=== PATIENT | female | born 1950 | race Caucasian/White ===

== ENCOUNTER 2017-10-27 06:39 | Emergency (ER) | payer OTHER, MEDICAID ==
[~2017-10-27] VITALS: Ht 154.9 cm; Wt 97.5 kg
[2017-10-27 06:40] VITALS: BP_SYST 165
[2017-10-27] MEDS ORDERED: ACETAMINOPHEN 500 MG TABLET PO ONE (06:45)
[2017-10-27] MEDS ORDERED: NACL 0.9% 1,000 ML IV ONE (06:45)
[2017-10-27] MEDS ORDERED: AMLO5TAB4 PO (06:56)
[2017-10-27] MEDS ORDERED: TRIA1CAP53 PO (06:56)
[2017-10-27] MEDS ORDERED: LISI40TA4 PO (06:56)
[2017-10-27 07:00] LABS: BASOPHILS % (AUTO) 0.7 % (0.0-2.0); EOSINOPHILS # (AUTO) 0.1 K/uL (0.0-0.4); EOSINOPHILS % (AUTO) 2.4 % (0.0-4.0); HEMATOCRIT 46.4 % (36-48); HEMOGLOBIN 15.3 g/dL (12.0-16.0); LYMPHOCYTES # (AUTO) 1.8 K/uL (1.0-5.5); LYMPHOCYTES % (AUTO) 28.7 % (20.5-51.5); MEAN CORPUSCULAR HEMOGLOBIN 29 pg (27-31); MEAN CORPUSCULAR HGB CONC 33 % (32-36); MEAN CORPUSCULAR VOLUME 87 fL (79.0-98.0); MONOCYTES # (AUTO) 0.3 K/uL (0.0-1.0); MONOCYTES % (AUTO) 5.1 % (1.7-9.3); NEUTROPHILS % (AUTO) 63.1 % (40.0-70.0); PLATELET COUNT (AUTO) 184 K/uL (130-430); RED BLOOD CELL COUNT(AUTO) 5.32 MIL/uL (4.2-6.2); RED CELL DISTRIBUTION WIDTH 12.8 % (9.0-15.0); WHITE BLOOD COUNT (AUTO) 6.2 K/uL (4.8-10.8)
[2017-10-27] MEDS ORDERED: ONDANSETRON HCL 4 MG/2 ML VIAL IVP ONE (07:00)
[2017-10-27 07:25] LABS: ANION GAP 10 (5-15); CALCIUM 9.3 mg/dL (8.4-11.0); CHLORIDE 104 mmol/L (98-107); CREATININE 0.77 mg/dL (0.55-1.30); GLUCOSE 160 mg/dL (70-99); POTASSIUM 3.4 mmol/L (3.5-5.1); SODIUM SERUM 141 mmol/L (136-145); UREA NITROGEN, BLOOD 16 mg/dL (8-21)
[2017-10-27 07:31] LABS: ALANINE AMINOTRANSFERASE 40 U/L (12-78); ASPARTATE AMINOTRANSFERASE 26 U/L (10-37); LIPASE 168 U/L (73-393); TOTAL BILIRUBIN 1.4 mg/dL (0.0-1.0)
[2017-10-27 08:01] LABS: GFR AFRICAN AMERICAN 96 mL/min (>90)
[2017-10-27 08:27] LABS: BILIRUBIN,URINE NEGATIVE (NEGATIVE); BLOOD, URINE NEGATIVE (NEGATIVE); CLARITY/URINE CLEAR (CLEAR); COLOR,URINE YELLOW (YELLOW); GLUCOSE,URINE NEGATIVE (NEGATIVE); KETONES,URINE NEGATIVE (NEGATIVE); LEUKOCYTE ESTERASE ,URINE TRACE (NEGATIVE); NITRITE, URINE NEGATIVE (NEGATIVE); PROTEIN URINE NEGATIVE (NEGATIVE); UROBILINOGEN,URINE 0.2 (0.2-1.0)
[2017-10-27 08:53] LABS: BACTERIA,URINE FEW /HPF (None Seen); RBC,URINE 0-3 /HPF (0-3); WBC,URINE 0-3 /HPF (0-3)
[2017-10-27 08:54] LABS: MUCUS,URINE None Seen /LPF (None Seen)
[2017-10-27] MEDS ORDERED: PROCHLORPERAZINE EDISYLATE 10 MG/2 ML VIAL IVP ONE (09:15)
[2017-10-27] MEDS ORDERED: NS 500 ML IV ONE (09:15)
[2017-10-27] MEDS ORDERED: DIPHENHYDRAMINE INJ 50 MG/ML VIAL IVP ONE (09:15)
[2017-10-27 10:45] VITALS: BP_SYST 124
== END 2017-10-27 10:45 | disposition home or self-care (01) ==
LOC: SED 06:39
DX: G44.209 Tension-type headache, unspecified, not intractable (principal); R42 Dizziness and giddiness; R06.02 Shortness of breath
CPT/HCPCS: 36415; 70450; 71045; 80053; 81000; 83690; 83880; 84484; 85025; 86710; 93005; 96361; 96374; 96375; 99285; J0780; J1200; J2405; J7030

== ENCOUNTER 2018-05-08 00:35 | Inpatient (IN) | payer OTHER, MEDICAID ==
[~2018-05-08] VITALS: Ht 154.9 cm; Wt 94.3 kg
[~2018-05-08 00:35] MED LIST: AMLO5TAB4 PO; LISI40TA4 PO; TRIA1CAP53 PO
[2018-05-08 00:55] VITALS: BP_SYST 150
--- NOTE | 2018-05-08 01:00 | NUR ---
Patient to ER bed 1 to gown for evaluation. Side rails up. Report given to KYE CHERY.
--- NOTE | 2018-05-08 01:10 | NUR ---
Patient AOx4, ambulatory, presents to ER with complaint of sharp left-sided CP x1 day and BLAS. Patient states hx of HTN. Per patient, blood pressure has been rising for the past few days. Patient speaking in full sentences. No other symptoms or complaints. at bedside.
--- NOTE | 2018-05-08 01:40 | NUR ---
SEAMUS Miller at bedside for medical evaluation.
--- NOTE | 2018-05-08 01:43 | NUR ---
# 20 gauge angiocath placed to RAC. Use of asceptic technique. Opsite placed over site. Blood return noted. Blood for lab drawn from site. Flushed with 10 cc of normal saline. No evidence of infiltration noted. Patient tolerated well.
[2018-05-08] MEDS ORDERED: ASPIRIN 81 MG TAB.CHEW PO ONE (01:45)
[2018-05-08] MEDS ORDERED: NITROGLYCERIN 0.4 MG TAB.SUBL SL ONE (01:45)
[2018-05-08 02:07] LABS: BASOPHILS # (AUTO) 0.1 K/uL (0.0-0.2); BASOPHILS % (AUTO) 1.3 % (0.0-2.0); EOSINOPHILS # (AUTO) 0.1 K/uL (0.0-0.4); EOSINOPHILS % (AUTO) 0.7 % (0.0-4.0); HEMATOCRIT 45.6 % (36-48); HEMOGLOBIN 15.6 g/dL (12.0-16.0); LYMPHOCYTES # (AUTO) 1.9 K/uL (1.0-5.5); LYMPHOCYTES % (AUTO) 24.1 % (20.5-51.5); MEAN CORPUSCULAR HEMOGLOBIN 30 pg (27-31); MEAN CORPUSCULAR HGB CONC 34 % (32-36); MEAN CORPUSCULAR VOLUME 88 fL (79.0-98.0); MONOCYTES # (AUTO) 0.5 K/uL (0.0-1.0); MONOCYTES % (AUTO) 6.8 % (1.7-9.3); NEUTROPHILS # (AUTO) 5.5 K/uL (1.8-7.7); NEUTROPHILS % (AUTO) 67.1 % (40.0-70.0); PLATELET COUNT (AUTO) 272 K/uL (130-430); RED BLOOD CELL COUNT(AUTO) 5.18 MIL/uL (4.2-6.2); RED CELL DISTRIBUTION WIDTH 12.5 % (9.0-15.0); WHITE BLOOD COUNT (AUTO) 8.1 K/uL (4.8-10.8)
--- NOTE | 2018-05-08 02:16 | NUR ---
Patient states CP has decreased significantly, no further doses of Nitro to be administered at this time.
[2018-05-08 02:26] LABS: PROTHROMBIN TIME 9.9 SECS (9.5-12.5)
--- NOTE | 2018-05-08 02:30 | NUR ---
No adverse reactions noted after medication administration. Will continue to monitor.
[2018-05-08 02:33] LABS: ALBUMIN 4.3 g/dL (3.4-4.8); CALCIUM 9.6 mg/dL (8.4-11.0); CREATININE 1.04 mg/dL (0.55-1.30); POTASSIUM 3.2 mmol/L (3.5-5.1); TOTAL BILIRUBIN 1.7 mg/dL (0.0-1.0)
[2018-05-08] MEDS ORDERED: POTASSIUM CHLORIDE 10 MEQ TAB.PRT.SR PO ONE (02:45)
--- NOTE | 2018-05-08 03:00 | NUR ---
End of life care decisions discussed with patient by Dr. Miller. Opportunity for questions and concerns addressed. Patient's code status is FULL CODE, paperwork completed and placed in chart.
[2018-05-08] MEDS ORDERED: NOR10 PO (03:07)
[2018-05-08] MEDS ORDERED: HYDR-4037 PO (03:07)
--- NOTE | 2018-05-08 03:07 | NUR ---
Medication reconciliation completed with information provided by patient. Any prior medication reconciliation on file was reviewed and corrected.
--- NOTE | 2018-05-08 03:23 | NUR ---
Patient will be admitted to care of Dr. Ventura. Admitted to Telemetry unit. Will go to room 135. Belongings list completed. Summary report printed. Report will be given at bedside.
--- NOTE | 2018-05-08 03:38 | NUR ---
ADMIT NOTE Received pt from ER to the floor with a diagnosis of CHEST PAIN, HYPERTENSION. Admission process initiated. patient oriented to pain management, safety and call light-teach back done.
[2018-05-08 03:44] VITALS: BP_SYST 141
--- NOTE | 2018-05-08 05:00 | NUR ---
ROUNDS PATIENT AWAKE IN BED. PARTNER AT BEDSIDE. DENIES ANY PAIN THIS TIME. NO DISTRESS NOTED. CALL LIGHT WITHIN REACH.
--- NOTE | 2018-05-08 05:49 | NUR ---
CONSULTATION PAGED/CALLED Reason for Consultation: CHEST PAIN Person Who was Notified: BONNIE Consulting Physician: RAMONA Feed In Worker Specialty: CARDIO Ordering Physician: IRMA
[2018-05-08] MEDS ORDERED: ACETAMINOPHEN 325 MG TABLET PO PRN (06:15)
[2018-05-08] MEDS ORDERED: NITROGLYCERIN 0.4 MG TAB.SUBL SL PRN (06:15)
[2018-05-08] MEDS ORDERED: INSULIN ASPART 100 UNITS/ML, 10 ML VIAL (NovoLOG) SUBCUT PRN (06:30)
--- NOTE | 2018-05-08 06:31 | NUR ---
CLOSING NOTES PATIENT RESTING IN BED. NO DISTRESS NOTED. NEEDS ATTENDED. SINUS RHYTHM ON TELE MONITOR. CALL LIGHT WITHIN REACH.
--- NOTE | 2018-05-08 07:30 | NUR ---
OPENING NOTE Received report at bedside. Patient is in bed resting and does not report chest pain. Breathing is non labored. Reviewed plan of care with patient, bed in low position and call light within reach.
[2018-05-08 08:30] VITALS: BP_SYST 125
--- NOTE | 2018-05-08 08:30 | NUR ---
ROUNDS Initial assessment and vital signs were done. Presently no report of chest pain. Family (Tad, significant other) is at bedside. She ambulated to the restroom to void. Administered morning medications and educated on side effects. All needs met. Will continue to monitor.
[2018-05-08] MEDS: FAMOTIDINE 20 MG TABLET PO SCH (08:47)
[2018-05-08] MEDS: hydrALAZINE HCL 10 MG TABLET PO SCH ×2 (08:48→21:29)
[2018-05-08] MEDS: LISINOPRIL 20 MG TABLET PO SCH (08:49)
[2018-05-08] MEDS: ASPIRIN 81 MG TABLET(ECOTRIN) PO SCH (08:49)
[2018-05-08 09:27] LABS: CHOLESTEROL 187 mg/dL (<200); HDL CHOLESTEROL 43 mg/dL (>55); LDL CHOLESTEROL 127 mg/dL (<100); TRIGLYCERIDES 156 mg/dL (30-150)
[2018-05-08 09:59] LABS: CALCIUM 9.4 mg/dL (8.4-11.0); CREATININE 0.95 mg/dL (0.55-1.30); POTASSIUM 3.4 mmol/L (3.5-5.1)
--- NOTE | 2018-05-08 10:00 | NUR ---
ROUNDS Patient is resting in bed supine for ECHO study. Respirations are non-labored and she does not report pain. Will continue to monitor.
--- NOTE | 2018-05-08 11:45 | NUR ---
ROUNDS Patient is resting, no s/sx of distress noted. Patient denies chest pain. Pt ambulated to restroom with steady gait. Glucose fingerstick was checked and resulted as 105. Will continue to monitor.
[2018-05-08 12:02] VITALS: BP_SYST 120
[2018-05-08] MEDS ORDERED: POTASSIUM CHLORIDE 20 MEQ TAB.PRT.SR PO ONE (12:15)
--- NOTE | 2018-05-08 13:20 | NUR ---
ROUNDS Patient is resting in bed. She is awake and talking with family, who is at bedside. Breathing is non-labored and she reports no chest pain. Needs met.
--- NOTE | 2018-05-08 15:07 | NUR ---
HEADACHE/PALPITATIONS At 1445 pt stated she felt palpitations, a sudden headache and her left side of her face go numb. No c/o dizziness at this time. Pt able to smile with no droopiness, able to follow commands, able to move all extremities normally. Vital signs : BP 154/81, HR 80, RR 18, SaO2 99% on room air. Pt showing NSR on the telemonitor, no changes in heart rate noted by school lunch monitor. Pt given Tylenol as ordered and cold packs placed to pt's forehead, light turned down low and curtain pulled to promote rest. Dr. Ventura called and informed that pt stated that she had the same facial numbness and pain this past October when she was diagnosed with vertigo, order for PRN BP given.
--- NOTE | 2018-05-08 15:38 | NUR ---
ROUNDS Patient reports headache has decreased to a level of 2/10, overall she is better. She said the medication and ice-packs helped. I re-checked her blood pressure and it is down from previous reading, it is 135/79, HR 79 and 97% on room air. Will continue to monitor.
[2018-05-08 16:02] VITALS: BP_SYST 145
--- NOTE | 2018-05-08 16:20 | NUR ---
SCD's Patient was up and returning to bed from the restroom. Patient was provided with SCD's as ordered. She was instructed that although she is independent, she needs to call for help prior to going to the restroom.
[2018-05-08 18:43] LABS: THYROID STIMULATING HORMONE 1.01 uIu/mL (0.36-3.74)
--- NOTE | 2018-05-08 18:50 | NUR ---
CLOSING NOTE Patient is resting in bed. She is awake and watching tv. No s/sx of distress. She denies pain to chest or headache at this time. She agreed to the flu shot and it was administered to right arm.
[2018-05-08] MEDS ORDERED: cloNIDine HCL 0.1 MG TABLET PO PRN (19:45)
--- NOTE | 2018-05-08 20:00 | NUR ---
INITIAL NOTES: PATIENT IN BED AWAKE ,ALERT ,ORIENTED X4. FAMILIES AT BEDSIDE. VITAL SIGNS TAKEN ,ALL WITHIN NORMAL LIMITS. DENIES SOB NOR CHEST PAIN. ROOM AIR. CALL LIGHT WITHIN REACH. BED IN LOW POSITION FOR SAFETY. BED ALARM ON. HAS SCD TO BOTH LEGS. INSTRUCTED HOW TO TAKE IF WHEN GOES TO BATHROOM. SINUS RHYTHM ON TELEMONITOR.
[2018-05-08 20:20] VITALS: BP_SYST 132
--- NOTE | 2018-05-08 21:20 | NUR ---
MEDS ADMIN: DUE MEDS GIVEN AFTER EXPLAINING INDICATIONS OF IT. BLOOD SUGAR WITHIN NORMAL LIMITS.
--- NOTE | 2018-05-08 22:10 | NUR ---
AMBULATED TO BATHROOM ASSISTED BY SISTER TO VOID. NO DIZZINESS.
--- NOTE | 2018-05-09 00:05 | NUR ---
PATIENT AND SISTER STILL AWAKE CONVERSING. VITAL SIGNS STABLE.
[2018-05-09 00:35] VITALS: BP_SYST 106
--- NOTE | 2018-05-09 02:15 | NUR ---
LAB DRAW: AM LABS WITH TROPONIN DRAWN BY LAB MILIEU TECHNICIAN.
[2018-05-09 02:47] LABS: ANION GAP 4 (5-15); CALCIUM 8.8 mg/dL (8.4-11.0); CHLORIDE 105 mmol/L (98-107); CREATININE 1.01 mg/dL (0.55-1.30); GLUCOSE 108 mg/dL (70-99); POTASSIUM 3.8 mmol/L (3.5-5.1); SODIUM SERUM 138 mmol/L (136-145); UREA NITROGEN, BLOOD 18 mg/dL (8-21)
[2018-05-09 02:57] LABS: GFR AFRICAN AMERICAN 71 mL/min (>90)
--- NOTE | 2018-05-09 03:00 | NUR ---
DOOZING OFF TO SLEEP.
--- NOTE | 2018-05-09 06:50 | NUR ---
CLOSING: BLOOD SUGAR 119MG/DL. NO S/S OF HYPOGLYCEMIA. NO EPISODE OF VERTIGO. SLEPT AT SHORT INTERVAL. NO ACUTE CARDIOPULMONARY DISTRESS . ALL NEEDS WERE ATTENDED. CALL LIGHT WITHIN REACH AT ALL TIMES.
[2018-05-09 08:11] VITALS: BP_SYST 137
--- NOTE | 2018-05-09 08:12 | NUR ---
INITIAL NOTE PT SITTING UP IN BED, EATING BREAKFAST. AT BEDSIDE. AAOX4, NO S/S OF ACUTE DISTRESS, NO C/O CHEST PAIN, BP WITHIN NORMAL RANGE, VSS. IV SITE TO [facility] 20GG SALINE LOCKED. PLAN OF CARE DISCUSSED, PT VERBALIZED UNDERSTANDING, SAFETY PRECAUTIONS IN PLACE, CALL LIGHT WITHIN REACH, WILL FOLLOW UP
[2018-05-09] MEDS: ASPIRIN 81 MG TABLET(ECOTRIN) PO SCH (08:50)
[2018-05-09] MEDS: hydrALAZINE HCL 10 MG TABLET PO SCH (08:50)
[2018-05-09] MEDS: LISINOPRIL 20 MG TABLET PO SCH (08:50)
[2018-05-09] MEDS: FAMOTIDINE 20 MG TABLET PO SCH (08:50)
--- NOTE | 2018-05-09 10:00 | NUR ---
DR GREENE MAKING ROUNDS, PER MD PT IS CLEARED FROM CARDIAC STAND POINT FOR DISCHARGE, AWAITING DR SOLIS TO MAKE ROUNDS FOR NEW ORDERS.
--- NOTE | 2018-05-09 10:42 | NUR ---
DC Planning: Updated pt's status and faxed FS / ED notes to Aleks at [facility] fax# [phone]. Informed dr. Serrano, the plan for Stress Test is not approved. Aleks will schedule the procedure for out patient this pm or tomorrow. Dr Serrano to revaluate for the disposition. Addendum: 05/09/18 at 1053 by Zechariah Casas RN Error Wrong patient entry
--- NOTE | 2018-05-09 11:30 | NUR ---
BLOOD SUGAR 88, NO COVERAGE NEEDED PER SLIDING SCALE. CALL LIGHT WITHIN REACH, AT BEDSIDE, WILL CONTINUE TO MONITOR
--- NOTE | 2018-05-09 11:45 | NUR ---
DR SOLIS MAKING ROUNDS, PT ASSESSED, NEW ORDER RECEIVED FOR DISCHARGE, PT TO FOLLOW UP WITH MD OUTPATIENT, PT WOULD LIKE TO LEAVE AFTER LUNCH, WILL START DISCHARGE PAPERWORK
[2018-05-09 12:04] VITALS: BP_SYST 118
[2018-05-09 12:33] VITALS: BP_SYST 118
--- NOTE | 2018-05-09 13:10 | NUR ---
D/C Patient Patient given medication reconciliation form and D/C instructions. Exit Care provided. Patient verbalized understanding. MD discussed with patient the results and treatment provided. Ambulatory with steady gait for discharge to home. Patient in stable condition, ID band removed. IV catheter removed, intact and dressing applied, no active bleeding. Patient educated on pain management. All belongings sent with patient. Patient educated on what medications to stop and to follow up with Dr Ventura as out patient
== END 2018-05-09 13:10 | disposition home or self-care (01) | DRG 313 ==
LOC: SED 00:35 → STU 03:16
PROVIDERS: ADMIT Internal Medicine; ATTEND Internal Medicine
DX: R07.89 Other chest pain (principal); R73.9 Hyperglycemia, unspecified; E78.5 Hyperlipidemia, unspecified; E66.9 Obesity, unspecified; I10 Essential (primary) hypertension; Z79.899 Other long term (current) drug therapy; Z80.3 Family history of malignant neoplasm of breast; Z82.49 Family history of ischemic heart disease and other diseases of the circulatory system; Z90.49 Acquired absence of other specified parts of digestive tract; Z90.710 Acquired absence of both cervix and uterus; Z68.39 Body mass index [BMI] 39.0-39.9, adult
CPT/HCPCS: 36415; 71045; 80048; 80053; 80061; 82962; 83735-TC; 83880; 84443-TC; 84484; 85025; 85610-TC; 85730-TC; 93005; 93306; 99285; J1815

== ENCOUNTER 2018-05-19 18:35 | Inpatient (IN) | payer OTHER, MEDICAID ==
[~2018-05-19] VITALS: Ht 154.9 cm; Wt 91.6 kg
[2018-05-19 18:35] VITALS: BP_SYST 186
[~2018-05-19 18:35] MED LIST changes: -AMLO5TAB4 PO; +HYDR-4037 PO; -TRIA1CAP53 PO
[2018-05-19 19:05] LABS: EOSINOPHILS # (AUTO) 0.3 K/uL (0.0-0.4)
[2018-05-19 19:21] LABS: BILIRUBIN,URINE NEGATIVE (NEGATIVE); BLOOD, URINE NEGATIVE (NEGATIVE); CLARITY/URINE CLEAR (CLEAR); COLOR,URINE YELLOW (YELLOW); GLUCOSE,URINE NEGATIVE (NEGATIVE); KETONES,URINE TRACE (NEGATIVE); LEUKOCYTE ESTERASE ,URINE 2+ (NEGATIVE); NITRITE, URINE NEGATIVE (NEGATIVE); PH,URINE 6.5 (5.0-8.0); PROTEIN URINE NEGATIVE (NEGATIVE); UROBILINOGEN,URINE 0.2 (0.2-1.0)
[2018-05-19 19:27] LABS: CALCIUM 9.3 mg/dL (8.4-11.0); CREATININE 0.89 mg/dL (0.55-1.30); MONOCYTES # (AUTO) 0.6 K/uL (0.0-1.0); POTASSIUM 3.8 mmol/L (3.5-5.1); PROTHROMBIN TIME 9.7 SECS (9.5-12.5); RED CELL DISTRIBUTION WIDTH 12.6 % (9.0-15.0)
[2018-05-19] MEDS ORDERED: NITROGLYCERIN 0.4 MG TAB.SUBL SL ONE (19:30)
[2018-05-19 19:32] LABS: ALBUMIN 3.8 g/dL (3.4-4.8); TOTAL BILIRUBIN 1.4 mg/dL (0.0-1.0)
[2018-05-19 19:36] LABS: RBC,URINE 0-3 /HPF (0-3)
[2018-05-19 19:37] LABS: BACTERIA,URINE FEW /HPF (None Seen); WBC,URINE 0-3 /HPF (0-3)
[2018-05-19 19:38] LABS: MUCUS,URINE None Seen /LPF (None Seen)
[2018-05-19 19:42] LABS: BASOPHILS # (AUTO) 0.1 K/uL (0.0-0.2); BASOPHILS % (AUTO) 1.4 % (0.0-2.0); EOSINOPHILS % (AUTO) 3.6 % (0.0-4.0); HEMATOCRIT 42.8 % (36-48); HEMOGLOBIN 13.8 g/dL (12.0-16.0); LYMPHOCYTES # (AUTO) 2.6 K/uL (1.0-5.5); LYMPHOCYTES % (AUTO) 34.8 % (20.5-51.5); MEAN CORPUSCULAR HEMOGLOBIN 29 pg (27-31); MEAN CORPUSCULAR HGB CONC 32 % (32-36); MEAN CORPUSCULAR VOLUME 90 fL (79.0-98.0); MONOCYTES % (AUTO) 7.6 % (1.7-9.3); NEUTROPHILS # (AUTO) 3.8 K/uL (1.8-7.7); NEUTROPHILS % (AUTO) 52.6 % (40.0-70.0); PLATELET COUNT (AUTO) 240 K/uL (130-430); RED BLOOD CELL COUNT(AUTO) 4.76 MIL/uL (4.2-6.2); WHITE BLOOD COUNT (AUTO) 7.4 K/uL (4.8-10.8)
[2018-05-19] MEDS ORDERED: ONDANSETRON HCL 4 MG/2 ML VIAL IVP PRN (21:30)
[2018-05-19] MEDS ORDERED: HYDROcodone/ACETAMIN 5-325 MG TAB (NORCO/ VICODIN) PO PRN (21:30)
[2018-05-19] MEDS ORDERED: DOCUSATE SODIUM 100 MG CAPSULE PO PRN (21:30)
[2018-05-19] MEDS ORDERED: ACETAMINOPHEN 325 MG TABLET PO PRN (21:30)
[2018-05-19] MEDS ORDERED: ZOLPIDEM TARTRATE 5 MG TABLET PO PRN (21:30)
[2018-05-19] MEDS ORDERED: MORPHINE 4 MG/ML INJ. SYRINGE IVP PRN (21:30)
[2018-05-19 21:56] VITALS: BP_SYST 163
[2018-05-19] MEDS ORDERED: MAGNESIUM SULFATE 50 ML IV PRN (22:45)
[2018-05-19] MEDS ORDERED: POTASSIUM CHLORIDE 20 MEQ TAB.PRT.SR PO PRN (22:45)
[2018-05-19] MEDS ORDERED: MUPIROCIN 2% TOPICAL OINTMENT 22 GM NS PRN (22:45)
[2018-05-19] MEDS ORDERED: hydrALAZINE HCL 20 MG/ML VIAL IVP SCH (23:00)
[2018-05-19] MEDS ORDERED: hydrALAZINE HCL 20 MG/ML VIAL IVP PRN (23:00)
[2018-05-19] MEDS ORDERED: HEPARIN SODIUM,PORCINE 5000 UNITS/ML VIAL SUBCUT SCH (23:30)
[2018-05-19] MEDS ORDERED: cefTRIAXone 1 GM IVPB PREMIX 50 ML IV ONE (23:33)
[2018-05-19] MEDS: NACL 0.9% 1,000 ML IV SCH (23:42)
[2018-05-19] MEDS: cefTRIAXone 1 GM IVPB PREMIX 50 ML IV SCH (23:43)
[2018-05-20 00:41] VITALS: BP_SYST 136
[2018-05-20 04:26] LABS: BASOPHILS # (AUTO) 0.1 K/uL (0.0-0.2); EOSINOPHILS # (AUTO) 0.3 K/uL (0.0-0.4); EOSINOPHILS % (AUTO) 3.9 % (0.0-4.0); HEMATOCRIT 42.2 % (36-48); HEMOGLOBIN 14.1 g/dL (12.0-16.0); LYMPHOCYTES # (AUTO) 2.3 K/uL (1.0-5.5); LYMPHOCYTES % (AUTO) 31.1 % (20.5-51.5); MEAN CORPUSCULAR HEMOGLOBIN 30 pg (27-31); MEAN CORPUSCULAR HGB CONC 33 % (32-36); MEAN CORPUSCULAR VOLUME 89 fL (79.0-98.0); MONOCYTES # (AUTO) 0.5 K/uL (0.0-1.0); MONOCYTES % (AUTO) 6.5 % (1.7-9.3); NEUTROPHILS # (AUTO) 4.2 K/uL (1.8-7.7); NEUTROPHILS % (AUTO) 57.5 % (40.0-70.0); PLATELET COUNT (AUTO) 241 K/uL (130-430); RED BLOOD CELL COUNT(AUTO) 4.75 MIL/uL (4.2-6.2); RED CELL DISTRIBUTION WIDTH 12.8 % (9.0-15.0); WHITE BLOOD COUNT (AUTO) 7.4 K/uL (4.8-10.8)
[2018-05-20 07:12] LABS: ANION GAP 11 (5-15); CALCIUM 9.3 mg/dL (8.4-11.0); CHLORIDE 108 mmol/L (98-107); CHOLESTEROL 159 mg/dL (<200); CREATININE 0.83 mg/dL (0.55-1.30); GLUCOSE 88 mg/dL (70-99); HDL CHOLESTEROL 43 mg/dL (>55); LDL CHOLESTEROL 106 mg/dL (<100); POTASSIUM 3.6 mmol/L (3.5-5.1); SODIUM SERUM 145 mmol/L (136-145); TOTAL BILIRUBIN 1.2 mg/dL (0.0-1.0); TRIGLYCERIDES 179 mg/dL (30-150); UREA NITROGEN, BLOOD 10 mg/dL (8-21)
[2018-05-20 07:17] LABS: GFR AFRICAN AMERICAN 88 mL/min (>90)
[2018-05-20] MEDS ORDERED: ALPR0.5T8 (07:47)
[2018-05-20 08:00] VITALS: BP_SYST 163
[2018-05-20] MEDS ORDERED: hydrALAZINE HCL 10 MG TABLET PO SCH (09:00)
[2018-05-20] MEDS: ATORVASTATIN 20 MG TABLET PO SCH (09:06)
[2018-05-20] MEDS: HEPARIN SODIUM,PORCINE 5000 UNITS/ML VIAL SUBCUT SCH ×2 (09:06→21:38)
[2018-05-20] MEDS: LACTOBACILLUS RHAMNOSUS GG 1 CAP CAPSULE PO SCH ×2 (09:07→21:32)
[2018-05-20] MEDS: ASPIRIN 81 MG TAB.CHEW PO SCH (09:07)
[2018-05-20] MEDS: LISINOPRIL 20 MG TABLET PO SCH (09:07)
[2018-05-20 11:24] VITALS: BP_SYST 156
[2018-05-20 15:28] VITALS: BP_SYST 145
[2018-05-20] MEDS ORDERED: LORazepam 1 MG TABLET PO PRN (16:00)
[2018-05-20] MEDS ORDERED: amLODIPine BESYLATE 5 MG TABLET PO ONE (16:00)
[2018-05-20] MEDS: NACL 0.9% 1,000 ML IV SCH (18:11)
[2018-05-20 20:00] VITALS: BP_SYST 147
[2018-05-20] MEDS: hydrALAZINE HCL 10 MG TABLET PO SCH (21:33)
[2018-05-20] MEDS: cefTRIAXone 1 GM IVPB PREMIX 50 ML IV SCH (23:16)
[2018-05-21] VITALS: BP_SYST 139
[2018-05-21 06:39] LABS: ANION GAP 8 (5-15); CALCIUM 8.7 mg/dL (8.4-11.0); CHLORIDE 109 mmol/L (98-107); CREATININE 0.72 mg/dL (0.55-1.30); GLUCOSE 94 mg/dL (70-99); POTASSIUM 3.4 mmol/L (3.5-5.1); SODIUM SERUM 145 mmol/L (136-145); UREA NITROGEN, BLOOD 10 mg/dL (8-21)
[2018-05-21 06:53] LABS: GFR AFRICAN AMERICAN 104 mL/min (>90)
[2018-05-21 07:48] VITALS: BP_SYST 165
[2018-05-21 07:49] LABS: HEMATOCRIT 37.6 % (36-48); HEMOGLOBIN 12.8 g/dL (12.0-16.0); MEAN CORPUSCULAR HEMOGLOBIN 31 pg (27-31); MEAN CORPUSCULAR HGB CONC 34 % (32-36); MEAN CORPUSCULAR VOLUME 90 fL (79.0-98.0); PLATELET COUNT (AUTO) 210 K/uL (130-430); RED CELL DISTRIBUTION WIDTH 12.7 % (9.0-15.0); WHITE BLOOD COUNT (AUTO) 5.8 K/uL (4.8-10.8)
[2018-05-21] MEDS: hydrALAZINE HCL 10 MG TABLET PO SCH ×2 (08:45→21:20)
[2018-05-21] MEDS: ASPIRIN 81 MG TAB.CHEW PO SCH (08:46)
[2018-05-21] MEDS: ATORVASTATIN 20 MG TABLET PO SCH (08:47)
[2018-05-21] MEDS: LISINOPRIL 20 MG TABLET PO SCH (08:47)
[2018-05-21] MEDS: LACTOBACILLUS RHAMNOSUS GG 1 CAP CAPSULE PO SCH ×2 (08:48→21:19)
[2018-05-21] MEDS: HEPARIN SODIUM,PORCINE 5000 UNITS/ML VIAL SUBCUT SCH ×2 (08:52→21:21)
[2018-05-21] MEDS ORDERED: amLODIPine BESYLATE 5 MG TABLET PO SCH (09:00)
[2018-05-21] MEDS: amLODIPine BESYLATE 10 MG TABLET PO SCH (10:38)
[2018-05-21 11:24] LABS: BAND % (MANUAL) 1 % (0-6); LYMPHOCYTES % (MANUAL) 27 % (20-46)
[2018-05-21 11:25] LABS: BASOPHILS % (MANUAL) 0 % (0-2); EOSINOPHILS % (MANUAL) 7 % (0-7); MONOCYTES % (MANUAL) 9 % (0-11)
[2018-05-21 11:28] VITALS: BP_SYST 147
[2018-05-21 15:23] VITALS: BP_SYST 130
[2018-05-21 19:55] VITALS: BP_SYST 132
[2018-05-21] MEDS: cefTRIAXone 1 GM IVPB PREMIX 50 ML IV SCH (23:24)
[2018-05-22 00:05] VITALS: BP_SYST 120
[2018-05-22 06:20] LABS: ANION GAP 10 (5-15); CALCIUM 8.8 mg/dL (8.4-11.0); CHLORIDE 108 mmol/L (98-107); CREATININE 0.75 mg/dL (0.55-1.30); GLUCOSE 103 mg/dL (70-99); POTASSIUM 3.4 mmol/L (3.5-5.1); SODIUM SERUM 144 mmol/L (136-145); UREA NITROGEN, BLOOD 11 mg/dL (8-21)
[2018-05-22 06:32] LABS: GFR AFRICAN AMERICAN 99 mL/min (>90)
[2018-05-22 06:53] LABS: BASOPHILS # (AUTO) 0.1 K/uL (0.0-0.2); BASOPHILS % (AUTO) 2.1 % (0.0-2.0); EOSINOPHILS # (AUTO) 0.3 K/uL (0.0-0.4); EOSINOPHILS % (AUTO) 5.4 % (0.0-4.0); HEMATOCRIT 37.2 % (36-48); HEMOGLOBIN 12.7 g/dL (12.0-16.0); LYMPHOCYTES # (AUTO) 1.7 K/uL (1.0-5.5); LYMPHOCYTES % (AUTO) 26.7 % (20.5-51.5); MEAN CORPUSCULAR HEMOGLOBIN 31 pg (27-31); MEAN CORPUSCULAR HGB CONC 34 % (32-36); MEAN CORPUSCULAR VOLUME 90 fL (79.0-98.0); MONOCYTES # (AUTO) 0.5 K/uL (0.0-1.0); MONOCYTES % (AUTO) 8.2 % (1.7-9.3); NEUTROPHILS # (AUTO) 3.6 K/uL (1.8-7.7); NEUTROPHILS % (AUTO) 57.6 % (40.0-70.0); PLATELET COUNT (AUTO) 209 K/uL (130-430); RED BLOOD CELL COUNT(AUTO) 4.16 MIL/uL (4.2-6.2); RED CELL DISTRIBUTION WIDTH 12.9 % (9.0-15.0); WHITE BLOOD COUNT (AUTO) 6.2 K/uL (4.8-10.8)
[2018-05-22 08:09] VITALS: BP_SYST 150
[2018-05-22] MEDS: HEPARIN SODIUM,PORCINE 5000 UNITS/ML VIAL SUBCUT SCH (08:22)
[2018-05-22] MEDS: LACTOBACILLUS RHAMNOSUS GG 1 CAP CAPSULE PO SCH (08:23)
[2018-05-22] MEDS: ATORVASTATIN 20 MG TABLET PO SCH (08:23)
[2018-05-22] MEDS: LISINOPRIL 20 MG TABLET PO SCH (08:23)
[2018-05-22] MEDS: ASPIRIN 81 MG TAB.CHEW PO SCH (08:24)
[2018-05-22] MEDS: amLODIPine BESYLATE 10 MG TABLET PO SCH (08:24)
[2018-05-22] MEDS: hydrALAZINE HCL 10 MG TABLET PO SCH (08:24)
[2018-05-22 10:18] VITALS: BP_SYST 135
== END 2018-05-22 10:40 | disposition home or self-care (01) | DRG 206 ==
LOC: SED 18:35 → STU 21:17
PROVIDERS: ADMIT General Practice; ATTEND General Practice
DX: M94.0 Chondrocostal junction syndrome [Tietze] (principal); N39.0 Urinary tract infection, site not specified; R17 Unspecified jaundice; F41.9 Anxiety disorder, unspecified; E66.9 Obesity, unspecified; Z68.38 Body mass index [BMI] 38.0-38.9, adult; I10 Essential (primary) hypertension; E80.6 Other disorders of bilirubin metabolism; E78.5 Hyperlipidemia, unspecified; M19.90 Unspecified osteoarthritis, unspecified site; N28.1 Cyst of kidney, acquired; Z79.899 Other long term (current) drug therapy; Z82.49 Family history of ischemic heart disease and other diseases of the circulatory system; Z90.49 Acquired absence of other specified parts of digestive tract; Z90.710 Acquired absence of both cervix and uterus; Z90.89 Acquired absence of other organs; Z80.3 Family history of malignant neoplasm of breast
CPT/HCPCS: 36415; 71045; 76770; 80048; 80053; 80061; 81000-TC; 82247-TC; 83036; 83735-TC; 84484; 85007; 85025; 85027; 85610-TC; 85730-TC; 87086; 93005; 99285; J0360; J0696; J1644; J7030; J7050

== ENCOUNTER 2020-05-05 09:30 | Emergency (ER) | payer OTHER, MEDICAID ==
[~2020-05-05] VITALS: Ht 154.9 cm; Wt 85.7 kg
[2020-05-05 09:30] VITALS: BP_SYST 173
[~2020-05-05 09:30] MED LIST changes: +ALPR0.5T8; -HYDR-4037 PO
[2020-05-05] MEDS ORDERED: KETOROLAC TROMETHAMINE 30 MG VIAL IM ONE (10:00)
[2020-05-05 10:22] VITALS: BP_SYST 150
== END 2020-05-05 10:22 | disposition home or self-care (01) ==
LOC: SED 09:30
DX: G44.209 Tension-type headache, unspecified, not intractable (principal); I10 Essential (primary) hypertension; F41.9 Anxiety disorder, unspecified
CPT/HCPCS: 81002; 96372; 99283; J1885

== ENCOUNTER 2023-12-17 17:05 | Emergency (ER) | payer OTHER, MEDICAID ==
[~2023-12-17] VITALS: Ht 154.9 cm; Wt 93.0 kg
[~2023-12-17 17:05] MED LIST changes: +LISI40TA13 PO; -LISI40TA4 PO
[2023-12-17 17:23] VITALS: BP_SYST 144; PULSE 81; RESP 15; O2SAT 97
[2023-12-17] MEDS: KETOROLAC TROMETHAMINE 30 MG VIAL IM ONE (18:07)
[2023-12-17] MEDS ORDERED: IBUP-1969 PO (19:57)
[2023-12-17] MEDS ORDERED: DICL20GE TP (19:57)
== END 2023-12-17 20:24 | disposition home or self-care (01) ==
LOC: SED 17:05
DX: S93.402A Sprain of unspecified ligament of left ankle, initial encounter (principal); S40.012A Contusion of left shoulder, initial encounter; M25.561 Pain in right knee; M79.672 Pain in left foot; I10 Essential (primary) hypertension; F41.9 Anxiety disorder, unspecified; Z79.899 Other long term (current) drug therapy; W18.39XA Other fall on same level, initial encounter; Y93.89 Activity, other specified; Y92.89 Other specified places as the place of occurrence of the external cause; Y99.8 Other external cause status
CPT/HCPCS: 99284; 29105; 73030; 73564; 73610; 73630; 96372; J1885

== ENCOUNTER 2024-05-21 11:45 | Emergency (ER) | payer MEDICARE, MEDICAID ==
[~2024-05-21] VITALS: Ht 154.9 cm; Wt 93.0 kg
[~2024-05-21 11:45] MED LIST changes: +DICL20GE TP; +IBUP-1969 PO
[2024-05-21 12:06] VITALS: BP_SYST 196; PULSE 86; RESP 18; TEMP 97.6; O2SAT 98
[2024-05-21 13:03] LABS: BASOPHILS # (AUTO) 0.1 K/uL (0.0-0.2); BASOPHILS % (AUTO) 0.8 % (0.0-2.0); EOSINOPHILS # (AUTO) 0.2 K/uL (0.0-0.4); EOSINOPHILS % (AUTO) 2.1 % (0.0-4.0); HEMOGLOBIN 14.7 g/dL (12.0-16.0); LYMPHOCYTES # (AUTO) 1.5 K/uL (1.0-5.5); LYMPHOCYTES % (AUTO) 20.6 % (20.5-51.5); MEAN CORPUSCULAR HEMOGLOBIN 29 pg (27-31); MEAN CORPUSCULAR HGB CONC 34 % (32-36); MEAN CORPUSCULAR VOLUME 86 fL (79.0-98.0); MONOCYTES # (AUTO) 0.6 K/uL (0.0-1.0); MONOCYTES % (AUTO) 7.9 % (1.7-9.3); NEUTROPHILS # (AUTO) 5.1 K/uL (1.8-7.7); NEUTROPHILS % (AUTO) 68.6 % (40.0-70.0); PLATELET COUNT (AUTO) 196 K/uL (130-430); RED CELL DISTRIBUTION WIDTH 13.7 % (9.0-15.0); WHITE BLOOD COUNT (AUTO) 7.4 K/uL (4.8-10.8)
[2024-05-21 13:30] LABS: ANION GAP 6 (5-15); CALCIUM 9.2 mg/dL (8.4-11.0); CARBON DIOXIDE 32 mmol/L (23-29); CHLORIDE 105 mmol/L (98-107); CREATININE 0.89 mg/dL (0.55-1.30); GLUCOSE 112 mg/dL (74-106); POTASSIUM 4.3 mmol/L (3.5-5.1); SODIUM SERUM 143 mmol/L (136-145); THYROID STIMULATING HORMONE 0.94 uIu/mL (0.36-3.74); UREA NITROGEN, BLOOD 17 mg/dL (8-21)
[2024-05-21] MEDS ORDERED: NOR10 PO (14:30)
[2024-05-21 14:40] VITALS: BP_SYST 131; PULSE 68; RESP 14; TEMP 97.5; O2SAT 99
== END 2024-05-21 14:39 | disposition home or self-care (01) ==
LOC: SED 11:45
DX: G43.909 Migraine, unspecified, not intractable, without status migrainosus (principal); I16.0 Hypertensive urgency; R53.1 Weakness; R90.82 White matter disease, unspecified; I10 Essential (primary) hypertension; F41.9 Anxiety disorder, unspecified; Z79.899 Other long term (current) drug therapy; Z79.2 Long term (current) use of antibiotics
CPT/HCPCS: 36415; 70450-TC; 71045; 80048; 83880; 84443; 84484; 85025; 93005; 99285